=== PATIENT | male | born 1975 | race Caucasian/White ===

== ENCOUNTER 2019-11-21 11:53 | Inpatient (IN) | payer OTHER ==
--- NOTE | 2019-11-21 12:16 | BHS.RME ---
Substance Use & Tx History - Substance Use History Alcohol Substance amount: 7 beers x 24 ounce Frequency of use: More than 3 times per week Substance route: Oral Date of Last Use: 11/19/19 Heroin Substance amount: 6 bags Frequency of use: Daily Substance route: Injection (ex: intravenous or skin popping) Date of Last Use: 11/20/19 Cocaine- Powder Substance amount: 4 bags Frequency of use: Daily Substance route: Injection (ex: intravenous or skin popping) Date of Last Use: 11/20/19 Xanax Substance amount: 2-3 mg Frequency of use: More than 3 times per week Substance route: Oral Date of Last Use: 11/18/19 Nicotine Substance amount: one pack Frequency of use: Daily Substance route: Smoking Date of Last Use: 11/21/19 Physical/Psych/Mental Status - Behavior General Behavior: Increased activity (restlessness, agitation) Eye Contact: Normal - Cooperativeness Cooperativeness: Cooperative - Thinking Thought content: Future oriented Perceptions: Hallucinations (auditory, visual, olfactory) (hears his name, auditory hallucinations when he is high, daily, not current) - Physical Health Problems Is patient presently having any pain?: No Does patient presently have any injuries (include location): No Does patient currently have a fever: No CIWA Nausea/Vomitin-No Nausea/No Vomiting Muscle Tremors: None Anxiety: 0-No Anxiety, at Ease Agitation: 1-Slight > Activity Paroxysmal Sweats: 1-Minimal Palms Moist Orientation: 1-Uncertain about Date Tacttile Disturbances: 0-None Auditory Disturbances: 2-Mild Harshness/Frighten Visual Disturbances: 0-None Headache: 0-None Present CIWA-Ar Total Score: 5
[2019-11-21 16:29] VITALS: BMI 25.7
--- NOTE | 2019-11-21 16:50 | HP ---
CIWA Score - Admission Criteria OASAS Guidelines: Admission for Medically Managed Detox: Requires at least one of the followin. CIWA greater than 12 2. Seizures within the past 24 hours 3. Delirium tremens within the past 24 hours 4. Hallucinations within the past 24 hours 5. Acute intervention needed for co occurring medical disorder 6. Acute intervention needed for co occurring psychiatric disorder 7. Severe withdrawal that cannot be handled at a lower level of care (continued vomiting, continued diarrhea, abnormal vital signs) requiring intravenous medication and/or fluids 8. Admission ROS S - HPI Chief Complaint: Seeking admission to Rehab. Allergies/Adverse Reactions: Allergies Allergy/AdvReac Type Severity Reaction Status Date / Time No Known Allergies Allergy Verified 11/21/19 12:23 History of Present Illness: 44 years old male with a long history of heroin dependence is seeking admission to Rehab. He reports that he spent 4 months at [facility] where he was detoxed. He denies medical history, psych. history and suicidal ideation. He is unemployed, homeless and denies pending legal issues. He is on Methadone 100mg tablet oral daily with [facility]. Dose is yet to be verified by the nurse. Exam Limitations: No Limitations - Ebola screening Have you traveled outside of the country in the last 21 days: No Have you had contact with anyone from an Ebola affected area: No Have you been sick,other than usual withdrawal symptoms: No Do you have a fever: No - Review of Systems Constitutional: No Symptoms Reported EENT: reports: No Symptoms Reported Respiratory: reports: No Symptoms reported Cardiac: reports: No Symptoms Reported GI: reports: No Symptoms Reported : reports: No Symptoms Reported Musculoskeletal: reports: No Symptoms Reported Integumentary: reports: No Symptoms Reported Neuro: reports: No Symptoms reported Endocrine: reports: No Symptoms Reported Hematology: reports: No Symptoms Reported Psychiatric: reports: No Sypmtoms Reported, Mood/Affect Appropiate, Orientated x3 Other Systems: Reviewed and Negative Patient History - Patient Medical History Hx Anemia: No Hx Asthma: No Hx Chronic Obstructive Pulmonary Disease (COPD): No Hx Cancer: No Hx Cardiac Disorders: No Hx Congestive Heart Failure: No Hx Hypertension: No Hx Hypercholesterolemia: No Hx Pacemaker: No HX Cerebrovascular Accident: No Hx Seizures: No Hx Dementia: No Hx Diabetes: No Hx Gastrointestinal Disorders: No Hx Liver Disease: No Hx Genitourinary Disorders: No Hx Sexually Transmitted Disorders: No Hx Renal Disease (ESRD): No Hx Thyroid Disease: No Hx Human Immunodeficiency Virus (HIV): No (Negative 2020) Hx Hepatitis C: No Hx Depression: No Hx Suicide Attempt: No (Denies suicidal ideation at this time) Hx Bipolar Disorder: No Hx Schizophrenia: No - Patient Surgical History Past Surgical History: No - PPD History Previous Implant?: Yes Documented Results: Negative w/o proof Implanted On Prior [facility] Admission?: No PPD to be Administered?: Yes - Reproductive History Patient is a Female of Child Bearing Age (11 -55 yrs old): No (Male) - Smoking Cessation Smoking history: Current every day smoker Have you smoked in the past 12 months: Yes Aproximately how many cigarettes per day: 20 Hx Chewing Tobacco Use: No Initiated information on smoking cessation: Yes 'Breaking Loose' booklet given: 11/21/19 - Substance & Tx. History Hx Alcohol Use: No Hx Substance Use: Yes Substance Use Type: Heroin Hx Substance Use Treatment: Yes ([facility] - Substances abused Heroin Substance route: Injection Frequency: Daily Amount used: 6 bags Age of first use: 12 Date of last use: 11/20/19 Admission Physical Exam [facility] - Vital Signs Vital Signs: Vital Signs - 24 hr 11/21/19 16:28 Temperature 97.2 F L Pulse Rate 68 Respiratory 18 Rate Blood Pressure 108/66 - Physical General Appearance: Yes: Within Normal Limits HEENTM: Yes: Within Normal Limits Respiratory: Yes: Normal Breath Sounds, No Respiratory Distress Neck: Yes: Within Normal Limits Breast: Yes: Breast Exam Deferred Cardiology: Yes: Regular Rhythm, Regular Rate Abdominal: Yes: Normal Bowel Sounds Genitourinary: Yes: Within Normal Limits Back: Yes: Normal Inspection Musculoskeletal: Yes: Within Normal Limits Extremities: Yes: Within Normal Limits Neurological: Yes: Within Normal Limits, Normal Mood/Affect Integumentary: Yes: Within Normal Limits Lymphatic: Yes: Within Normal Limits - Diagnostic (1) Opioid dependence, uncomplicated Current Visit: Yes Status: Chronic (2) Nicotine dependence Current Visit: Yes Status: Chronic Qualifiers: Nicotine product type: cigarettes Substance use status: uncomplicated Qualified Code(s): F17.210 - Nicotine dependence, cigarettes, uncomplicated (3) Methadone maintenance therapy patient Current Visit: Yes Status: Chronic Cleared for Admission [facility] - Detox or Rehab [facility] Level of Care: Observation Bed Claeared for Rehab Admission: Yes Breathalyzer - Breathalyzer Breathalyzer: 0 Urine Drug Screen - Test Device Lot number: [id number] Expiration date: 09/10/21 - Control Is test valid?: Yes - Results Drug screen NEGATIVE: No Urine drug screen results: CANDELARIO-Cocaine, FEN-Fentanyl, MOP-Opiates, MTD-Methadone Inpatient Rehab Admission - Rehab Decision to Admit Inpatient rehab admission?: Yes - Initial Determination Are CD services needed?: No Free of communicable disease: Yes Not in need of hospitalization: Yes - Rehab Admission Criteria Previous failed treatment: Yes Poor recovery environment: Yes Comorbidities: No Lacks judgement: No Patient is meeting Inpatient Rehab admission criteria:: Yes
[2019-11-21] MEDS ORDERED: ACETAMINOPHEN 325 MG TABLET (FP) PO PRN (17:01)
[2019-11-21] MEDS ORDERED: guaiFENesin 200 MG/10 ML 10 ML UNIT-DOSE CUPS PO PRN (17:01)
[2019-11-21] MEDS ORDERED: IBUPROFEN 400 MG TABLET (FP) PO PRN (17:01)
[2019-11-21] MEDS ORDERED: MAGNESIUM HYDROX 2400MG/30ML ORAL SUSPENSION 30 ML CUP PO PRN (17:01)
[2019-11-21] MEDS ORDERED: MAG HYDROX/AL HYDROX/SIMETH 30 ML UNIT-DOSE CUP PO PRN (17:01)
[2019-11-21] MEDS ORDERED: P-EPHED 60MG/TRIPROLIDI 2.5MG TABLET PO PRN (17:01)
[2019-11-21] MEDS ORDERED: MAGNESIUM CITRATE 300 ML BOTTLE PO PRN (17:01)
[2019-11-21] MEDS ORDERED: LOPERAMIDE HCL 2 MG CAPSULE PO PRN (17:01)
[2019-11-21] MEDS ORDERED: TUBERCULIN PPD 5 TU/0.1ML VIAL ID ONE (17:32)
[2019-11-21] MEDS: THIAMINE HCL 100 MG TABLET (FP) PO SCH (21:55)
[2019-11-21] MEDS: MELATONIN 5 MG TABLETS PO SCH (21:55)
[2019-11-22] MEDS ORDERED: METHADONE HCL 10 MG TABLET PO ONE (09:10)
[2019-11-22] MEDS ORDERED: METHADONE 80 MG, METHADONE 20 MG PO ONE (09:20)
[2019-11-22] MEDS ORDERED: METHADONE HCL 10 MG TABLET ONE (09:38)
[2019-11-22] MEDS ORDERED: METHADONE HCL 40 MG DISPERSABLE TABLET ONE (09:39)
[2019-11-22] MEDS: PRENATAL VITAMINS W/ FOLIC ACID TABLET (FP) PO SCH (10:17)
[2019-11-22] MEDS: NICOTINE 21 MG/24 HOURS TOPICAL PATCH TD SCH (10:17)
[2019-11-22 12:04] LABS: HEMATOCRIT 37.5 % (35.4-49); HEMOGLOBIN 12.4 GM/dL (11.7-16.9); MCHC 33.1 g/dl (32.0-35.9); MEAN CELL VOLUME 87.8 fl (80-96); MEAN PLT VOLUME 8.4 fl (7.5-11.1); PLATELET COUNT 243 K/MM3 (134-434); RBC 4.27 M/mm3 (4.00-5.60); RDW 13.9 % (11.9-15.9); WHITE BLOOD COUNT 5.6 K/mm3 (4.0-10.0)
[2019-11-22 12:15] LABS: SICKLE CELL SCREEN NEGATIVE (NEGATIVE)
[2019-11-22 12:20] LABS: ALBUMIN 3.2 g/dl (3.4-5.0); BILIRUBIN,TOTAL 0.5 mg/dL (0.2-1); CALCIUM 8.6 mg/dL (8.5-10.1); POTASSIUM 3.9 mmol/L (3.5-5.1); TOT PROT 7.3 g/dl (6.4-8.2)
--- NOTE | 2019-11-22 13:39 | EKG ---
Test Reason : Blood Pressure : / mmHG Vent. Rate : 045 BPM Atrial Rate : 045 BPM P-R Int : 154 ms QRS Dur : 094 ms QT Int : 472 ms P-R-T Axes : 067 008 001 degrees QTc Int : 408 ms SINUS BRADYCARDIA NONSPECIFIC T WAVE ABNORMALITY ABNORMAL ECG NO PREVIOUS ECGS AVAILABLE Confirmed by OBIE HASSAN MD ([id number]) on 11/22/2019 1:39:01 PM Referred By: Confirmed By:OBIE HASSAN MD
[2019-11-22] MEDS: THIAMINE HCL 100 MG TABLET (FP) PO SCH (21:46)
[2019-11-22] MEDS: MELATONIN 5 MG TABLETS PO SCH (21:46)
[2019-11-23] MEDS ORDERED: METHADONE 80 MG, METHADONE 20 MG PO SCH (06:00)
[2019-11-23] MEDS ORDERED: METHADONE HCL 10 MG TABLET PO SCH (06:00)
[2019-11-23] MEDS ORDERED: METHADONE HCL 10 MG TABLET ONE (06:26)
[2019-11-23] MEDS ORDERED: METHADONE HCL 40 MG DISPERSABLE TABLET ONE (06:26)
[2019-11-23] MEDS: NICOTINE 21 MG/24 HOURS TOPICAL PATCH TD SCH (10:52)
[2019-11-23] MEDS: PRENATAL VITAMINS W/ FOLIC ACID TABLET (FP) PO SCH (10:52)
[2019-11-23 16:38] VITALS: BP 111/67; PULSE 88; TEMP 98
--- NOTE | 2019-11-23 16:53 | PN ---
[facility] Progress Note Note: Patient leaving early. Vital Signs 11/23/19 11/23/19 12:24 16:36 Temperature 98.0 F Pulse Rate 88 Respiratory 18 Rate Blood Pressure 111/67 O2 Sat by Pulse 96 98 Oximetry (%) Alert and oriented. Gait steady. Lungs CTA. HR: RR Abd soft, NT, BS+ Laboratory Last Values WBC 5.6 K/mm3 (4.0-10.0) 11/21/19 09:00 RBC 4.27 M/mm3 (4.00-5.60) 11/21/19 09:00 Hgb 12.4 GM/dL (11.7-16.9) 11/21/19 09:00 Hct 37.5 % (35.4-49) 11/21/19 09:00 MCV 87.8 fl (80-96) 11/21/19 09:00 MCH 29.0 pg (25.7-33.7) 11/21/19 09:00 MCHC 33.1 g/dl (32.0-35.9) 11/21/19 09:00 RDW 13.9 % (11.9-15.9) 11/21/19 09:00 Plt Count 243 K/MM3 (134-434) 11/21/19 09:00 MPV 8.4 fl (7.5-11.1) 11/21/19 09:00 Sickle Cell Screen Negative (NEGATIVE) 11/21/19 09:00 Sodium 139 mmol/L (136-145) 11/21/19 09:00 Potassium 3.9 mmol/L (3.5-5.1) 11/21/19 09:00 Chloride 106 mmol/L (98-107) 11/21/19 09:00 Carbon Dioxide 29 mmol/L (21-32) 11/21/19 09:00 Anion Gap 4 MMOL/L (8-16) L 11/21/19 09:00 BUN 11.0 mg/dL (7-18) 11/21/19 09:00 Creatinine 1.0 mg/dL (0.55-1.3) 11/21/19 09:00 Est GFR (CKD-EPI)AfAm 106.36 11/21/19 09:00 Est GFR (CKD-EPI)NonAf 91.77 11/21/19 09:00 Random Glucose 85 mg/dL (74-106) 11/21/19 09:00 Calcium 8.6 mg/dL (8.5-10.1) 11/21/19 09:00 Total Bilirubin 0.5 mg/dL (0.2-1) 11/21/19 09:00 AST 35 U/L (15-37) 11/21/19 09:00 ALT 41 U/L (13-61) 11/21/19 09:00 Alkaline Phosphatase 90 U/L (45-117) 11/21/19 09:00 Total Protein 7.3 g/dl (6.4-8.2) 11/21/19 09:00 Albumin 3.2 g/dl (3.4-5.0) L 11/21/19 09:00 Syphilis Serology Non-reactive (NONREACTIVE) 11/21/19 09:00 SARS-CoV-2 (PCR) Negative (Negative) 11/21/19 12:30 PPD non-reactive (00 mm) Plan: Reviewed diagnostic tests w/ patient. Stabilized on Methadone and returning to [facility] in a.m. Declines NRT. Declines Narcan kit, despite encouragement.
--- NOTE | 2019-11-23 16:56 | DS ---
[facility] Rehab Discharge Summary - [facility] Rehab Discharge Summary Admission Date: 11/21/19 Discharge Date: 11/23/19 - History Present History: Opioid dependence - Discharge Physical Exam Vital Signs: Vital Signs Temperature 98.0 F 11/23/19 16:36 Pulse Rate 88 11/23/19 16:36 Respiratory Rate 18 11/23/19 16:36 Blood Pressure 111/67 11/23/19 16:36 O2 Sat by Pulse Oximetry (%) 98 11/23/19 16:36 - Treatment Discharge Condition: Discharge condition good (Alert and oriented. Gait steady. Lungs CTA. HR: RR Abd soft, NT, BS+) Hospital Course: Stable on rehab. Laboratory Last Values WBC 5.6 K/mm3 (4.0-10.0) 11/21/19 09:00 RBC 4.27 M/mm3 (4.00-5.60) 11/21/19 09:00 Hgb 12.4 GM/dL (11.7-16.9) 11/21/19 09:00 Hct 37.5 % (35.4-49) 11/21/19 09:00 MCV 87.8 fl (80-96) 11/21/19 09:00 MCH 29.0 pg (25.7-33.7) 11/21/19 09:00 MCHC 33.1 g/dl (32.0-35.9) 11/21/19 09:00 RDW 13.9 % (11.9-15.9) 11/21/19 09:00 Plt Count 243 K/MM3 (134-434) 11/21/19 09:00 MPV 8.4 fl (7.5-11.1) 11/21/19 09:00 Sickle Cell Screen Negative (NEGATIVE) 11/21/19 09:00 Sodium 139 mmol/L (136-145) 11/21/19 09:00 Potassium 3.9 mmol/L (3.5-5.1) 11/21/19 09:00 Chloride 106 mmol/L (98-107) 11/21/19 09:00 Carbon Dioxide 29 mmol/L (21-32) 11/21/19 09:00 Anion Gap 4 MMOL/L (8-16) L 11/21/19 09:00 BUN 11.0 mg/dL (7-18) 11/21/19 09:00 Creatinine 1.0 mg/dL (0.55-1.3) 11/21/19 09:00 Est GFR (CKD-EPI)AfAm 106.36 11/21/19 09:00 Est GFR (CKD-EPI)NonAf 91.77 11/21/19 09:00 Random Glucose 85 mg/dL (74-106) 11/21/19 09:00 Calcium 8.6 mg/dL (8.5-10.1) 11/21/19 09:00 Total Bilirubin 0.5 mg/dL (0.2-1) 11/21/19 09:00 AST 35 U/L (15-37) 11/21/19 09:00 ALT 41 U/L (13-61) 11/21/19 09:00 Alkaline Phosphatase 90 U/L (45-117) 11/21/19 09:00 Total Protein 7.3 g/dl (6.4-8.2) 11/21/19 09:00 Albumin 3.2 g/dl (3.4-5.0) L 11/21/19 09:00 Syphilis Serology Non-reactive (NONREACTIVE) 11/21/19 09:00 SARS-CoV-2 (PCR) Negative (Negative) 11/21/19 12:30 PPD non-reactive (00 mm) Reviewed diagnostic tests w/ patient. Stabilized on Methadone and returning to [facility] in a.m. Declined NRT. Declined Narcan kit, despite encouragement. - Medication Discharge Medications: Ambulatory Orders NK [No Known Home Medication] 11/21/19 - Medication-Assisted Treatment (MAT) Medication-Assisted Treatment (MAT): Yes MAT Follow-up Referral: [facility] - Discharge Instructions Diet, activity, other medical instructions: Diet: Activity: Other medical instructions: - Diagnosis (1) Methadone maintenance therapy patient Status: Chronic (2) Opioid dependence, uncomplicated Status: Chronic - Follow-up Referral Minutes to complete discharge: 20 - AMA Did Patient Leave Against Medical Advice: No
== END 2019-11-23 17:15 | disposition home or self-care (01) | DRG 772 ==
LOC: YASAS 11:53 → Y5N 17:06
PROVIDERS: ADMIT Allergy & Immunology; ATTEND Allergy & Immunology
PROC: HZ42ZZZ Group Counseling for Substance Abuse Treatment, Cognitive-Behavioral (ICD-10-PCS; principal; 2019-11-21)
DX: F11.20 Opioid dependence, uncomplicated (principal); F10.20 Alcohol dependence, uncomplicated; F14.20 Cocaine dependence, uncomplicated; F13.20 Sedative, hypnotic or anxiolytic dependence, uncomplicated; F17.210 Nicotine dependence, cigarettes, uncomplicated; Z56.0 Unemployment, unspecified; Z59.0 Homelessness
CPT/HCPCS: 36415; 80053; 85027; 85660; 86780; 93005; 93010; C9803; U0003